=== PATIENT | female | born 1955 | race Caucasian/White ===

== ENCOUNTER → 2016-11-29 | Outpatient (CLI) | payer BC ==
--- NOTE | 2016-12-03 10:16 | MM ---
Reason for exam: screening (asymptomatic). Last mammogram was performed 1 year ago. History: Patient is postmenopausal and has history of other cancer at age 55. Physical Findings: A clinical breast exam by your physician is recommended on an annual basis and results should be correlated with mammographic findings. MG 3D Screening Mammo W/Cad Bilateral CC and MLO view(s) were taken. Prior study comparison: November 22, 2015, bilateral MG 3d screening mammo w/cad. There are scattered fibroglandular densities. There is no discrete abnormality. No significant changes when compared with prior studies. ASSESSMENT: Negative, BI-RAD 1 RECOMMENDATION: Routine screening mammogram of both breasts in 1 year.
== END | disposition home or self-care (01) ==
LOC: RADMAMWWP 06:45
PROVIDERS: ATTEND Internal Medicine
DX: Z12.31 Encounter for screening mammogram for malignant neoplasm of breast (principal)
CPT/HCPCS: 77063; G0202

== ENCOUNTER 2017-10-24 10:51 | Emergency (ER) | payer BC ==
[2017-10-24 11:05] VITALS: RESP 18
[2017-10-24] MEDS ORDERED: ONDANSETRON 4 MG/2 ML VIAL IVP STA (12:06)
[2017-10-24] MEDS ORDERED: SODIUM CHLORIDE 0.9% 2,000 ML IV STA (12:06)
[2017-10-24] MEDS ORDERED: SODIUM CHLORIDE 0.9% 1,000 ML IV STA (12:06)
[2017-10-24] MEDS ORDERED: RX INFO: IV CONTRAST WAS GIVEN 1 EACH MISC MISCELLANE PRN (12:06)
[2017-10-24] MEDS ORDERED: FAMOTIDINE 20 MG/2 ML VIAL IV STA (12:08)
--- NOTE | 2017-10-24 12:23 | ED ---
Nausea/Vomiting/Diarrhea HPI - General Chief complaint: Nausea/Vomiting/Diarrhea Stated complaint: Vomiting Time Seen by Provider: 10/24/17 11:30 Source: patient, RN notes reviewed Mode of arrival: ambulatory Limitations: no limitations - History of Present Illness Initial comments: This is a 62-year-old female who presents with onset of nausea and vomiting around 4 AM this morning and later developing diarrhea. Generalized abdominal pain. No overt fevers chills or sweats vomiting up greenish yellow material. She states she has mostly upper abdominal discomfort mild in severity she was seen by her doctor and sent here for further evaluation. She has a history of a hysterectomy and thyroid lobectomy no other abdominal surgeries she reports. No dysuria no hematuria no blood per rectum. Some mild generalized weakness no overt dizziness or lightheadedness. MD complaint: nausea, vomiting, diarrhea, abdominal pain - Related Data Home Medications Medication Instructions Recorded Confirmed Levothyroxine Sodium [Levoxyl] 100 mcg PO DAILY 10/24/17 10/24/17 Numn-Zwif-Pok 6.25-5-10Mg/5Ml 2.5 ml PO DAILY PRN 10/24/17 10/24/17 [Phenergan VC with Codeine] Previous Rx's Medication Instructions Recorded Dicyclomine [Bentyl] 10 mg PO TID PRN #6 capsule 10/24/17 Ondansetron Odt [Zofran Odt] 4 mg PO Q8HR PRN #10 tab 10/24/17 Allergies Allergy/AdvReac Type Severity Reaction Status Date / Time Inmwchj-Fje-Hfj Reductase AdvReac Unknown Verified 10/24/17 11:19 Inhibitor Review of Systems ROS Statement: Those systems with pertinent positive or pertinent negative responses have been documented in the HPI. ROS Other: All systems not noted in ROS Statement are negative. Past Medical History Past Medical History: Asthma, Hyperlipidemia, Thyroid Disorder Additional Past Medical History / Comment(s): blood clot in brachial artery in her right arm History of Any Multi-Drug Resistant Organisms: None Reported Past Surgical History: Heart Catheterization, Hysterectomy Additional Past Surgical History / Comment(s): left lower lung lobectomy Past Psychological History: No Psychological Hx Reported Smoking Status: Never smoker Past Alcohol Use History: Rare Past Drug Use History: None Reported General Exam - General Exam Comments Initial Comments: This is a well-developed well-nourished awake alert oriented 3 female Limitations: no limitations General appearance: alert Head exam: Present: atraumatic, normocephalic, normal inspection Eye exam: Present: normal appearance, PERRL, EOMI. Absent: scleral icterus, conjunctival injection, periorbital swelling ENT exam: Present: mucous membranes dry Neck exam: Present: normal inspection. Absent: tenderness, meningismus, lymphadenopathy Respiratory exam: Present: normal lung sounds bilaterally. Absent: respiratory distress, wheezes, rales, rhonchi, stridor Cardiovascular Exam: Present: regular rate, normal rhythm, normal heart sounds. Absent: systolic murmur, diastolic murmur, rubs, gallop, clicks GI/Abdominal exam: Present: soft, tenderness (Mild tenderness palpation especially upper abdomen some mild right lower quadrant tenderness no guarding rebound masses or bruits), normal bowel sounds. Absent: distended, guarding, rebound, rigid Rectal exam: Present: deferred Extremities exam: Present: normal inspection, full ROM, normal capillary refill. Absent: tenderness, pedal edema, joint swelling, calf tenderness Back exam: Present: normal inspection Neurological exam: Present: alert, oriented X3, CN II-XII intact Psychiatric exam: Present: normal affect, normal mood Skin exam: Present: warm, dry, intact, normal color. Absent: rash Course Vital Signs 10/24/17 11:01 Temperature 97.1 F L Pulse Rate 91 Respiratory 18 Rate Blood Pressure 135/70 O2 Sat by Pulse 97 Oximetry Medical Decision Making - Medical Decision Making I did discuss [employer] the patient and her family. Patient be discharged she is feeling improved at this time. The presentation is consistent with a gastroenteritis. - Lab Data Result diagrams: 10/24/17 12:43 10/24/17 12:43 Lab Results 10/24/17 10/24/17 Range/Units 12:43 12:43 WBC 16.1 H (3.8-10.6) k/uL RBC 5.63 H (3.80-5.40) m/uL Hgb 16.5 H (11.4-16.0) gm/dL Hct 51.0 H (34.0-46.0) % MCV 90.6 (80.0-100.0) fL MCH 29.4 (25.0-35.0) pg MCHC 32.4 (31.0-37.0) g/dL RDW 14.3 (11.5-15.5) % Plt Count 317 (150-450) k/uL Neutrophils % 92 % Lymphocytes % 3 % Monocytes % 4 % Eosinophils % 1 % Basophils % 0 % Neutrophils # 14.7 H (1.3-7.7) k/uL Lymphocytes # 0.5 L (1.0-4.8) k/uL Monocytes # 0.6 (0-1.0) k/uL Eosinophils # 0.2 (0-0.7) k/uL Basophils # 0.1 (0-0.2) k/uL Sodium 141 (137-145) mmol/L Potassium 3.9 (3.5-5.1) mmol/L Chloride 99 (98-107) mmol/L Carbon Dioxide 29 (22-30) mmol/L Anion Gap 13 mmol/L BUN 24 H (7-17) mg/dL Creatinine 0.83 (0.52-1.04) mg/dL Est GFR (MDRD) Af Amer >60 (>60 ml/min/1.73 sqM) Est GFR (MDRD) Non-Af >60 (>60 ml/min/1.73 sqM) Glucose 112 H (74-99) mg/dL Calcium 10.6 H (8.4-10.2) mg/dL Total Bilirubin 0.9 (0.2-1.3) mg/dL AST 26 (14-36) U/L ALT 44 (9-52) U/L Alkaline Phosphatase 146 H (38-126) U/L Total Protein 8.1 (6.3-8.2) g/dL Albumin 4.9 (3.5-5.0) g/dL Amylase 107 (30-110) U/L Lipase 256 (23-300) U/L - Radiology Data Radiology results: report reviewed (I did review the imaging and reports the exam is consistent with gastroenteritis. It penetrated be normal.), image reviewed Disposition Clinical Impression: Gastroenteritis, Dehydration Disposition: HOME SELF-CARE Condition: Good Instructions: Acute Nausea and Vomiting (ED), Acute Diarrhea (ED), Dehydration (ED) Prescriptions: Dicyclomine [Bentyl] 10 mg PO TID PRN #6 capsule PRN Reason: Pain Ondansetron Odt [Zofran Odt] 4 mg PO Q8HR PRN #10 tab PRN Reason: Nausea Referrals: Quinn Lainez MD [Primary Care Provider] - 1-2 days
[2017-10-24 12:58] LABS: Basophils # (A) 0.1 k/uL (0-0.2); Basophils % (A) 0 %; Eosinophils # (A) 0.2 k/uL (0-0.7); Eosinophils % (A) 1 %; HGB 16.5 gm/dL (11.4-16.0); Lymphocytes # (A) 0.5 k/uL (1.0-4.8); Lymphocytes % (A) 3 %; MCH 29.4 pg (25.0-35.0); MCHC 32.4 g/dL (31.0-37.0); MCV 90.6 fL (80.0-100.0); Mean Platelet Volume 7.1; Monocytes # (A) 0.6 k/uL (0-1.0); Monocytes % (A) 4 %; Neutrophils # (A) 14.7 k/uL (1.3-7.7); Neutrophils % (A) 92 %; Platelet Count 317 k/uL (150-450); RBC 5.63 m/uL (3.80-5.40); RDW 14.3 % (11.5-15.5); WBC 16.1 k/uL (3.8-10.6)
[2017-10-24 13:27] LABS: ALT 44 U/L (9-52); AST 26 U/L (14-36); Albumin 4.9 g/dL (3.5-5.0); Alkaline Phosphatase 146 U/L (38-126); Amylase 107 U/L (30-110); Anion Gap 13 mmol/L; Blood Urea Nitrogen 24 mg/dL (7-17); Calcium 10.6 mg/dL (8.4-10.2); Carbon Dioxide 29 mmol/L (22-30); Chloride 99 mmol/L (98-107); Glucose 112 mg/dL (74-99); Lipase 256 U/L (23-300); Potassium 3.9 mmol/L (3.5-5.1); Sodium 141 mmol/L (137-145); Total Bilirubin 0.9 mg/dL (0.2-1.3); Total Protein 8.1 g/dL (6.3-8.2)
--- NOTE | 2017-10-24 14:04 | CT ---
EXAMINATION TYPE: CT abdomen pelvis w con DATE OF EXAM: 10/24/2017 COMPARISON: NONE HISTORY: Nausea, vomiting and diarrhea today. CT DLP: 885.60 mGycm CONTRAST: CT scan of the abdomen and pelvis is performed without Oral Contrast and with IV Contrast, patient in jected with 100 mL of Omnipaque 300. FINDINGS: LUNG BASES-: No visible nodule. No infiltrate. LIVER/GB: No calcified gallstones. No space occupying hepatic lesion. Biliary tree is of normal ca liber. PANCREAS: No inflammation. No distinct mass. SPLEEN: No splenic enlargement. No lesion seen. ADRENALS: No nodule. No thickening. KIDNEYS/BLADDER: No hydronephrosis. No nephrolithiasis. No disctinct renal mass. Urinary bladder g rossly unremarkable. BOWEL: Normal appendix. Fluid distended small and large bowel felt to reflect gastroenteritis. No darwin dence for obstruction. No free air or abscess. No inflammatory process.. GENITAL ORGANS: Hysterectomy changes noted. LYMPH NODES: No greater than 1cm abdominal or pelvic lymph nodes are appreciated. AORTA: No significant abnormality. OSSEOUS STRUCTURES: No significant abnormality is seen. OTHER: No significant additional abnormality is seen. IMPRESSION: 1. Fluid distended small and large bowel felt to reflect gastroenteritis.
[2017-10-24 15:30] VITALS: BP 132/72; PULSE 96; TEMP 98.1
== END 2017-10-24 15:15 | disposition home or self-care (01) ==
LOC: EC 10:51
DX: K52.9 Noninfective gastroenteritis and colitis, unspecified (principal); E86.0 Dehydration; E07.9 Disorder of thyroid, unspecified; Z88.8 Allergy status to other drugs, medicaments and biological substances; Z79.899 Other long term (current) drug therapy
CPT/HCPCS: 36415; 80053; 82150; 83690; 85025; 74177; 99284; 96374; 96375; 96361 ×2; J2405; Q9967

== ENCOUNTER 2017-11-17 19:02 | Observation (INO) | payer BC ==
[2017-11-17] MEDS ORDERED: NITROGLYCERIN OINT 1 INCH/GM PACKET TOPICAL STA (19:28)
[2017-11-17] MEDS ORDERED: ASPIRIN 81 MG PO STA (19:28)
--- NOTE | 2017-11-17 19:31 | ED ---
General Adult HPI - General Chief complaint: Chest Pain Stated complaint: Chest pain Time Seen by Provider: 11/17/17 19:20 Source: patient, RN notes reviewed Mode of arrival: wheelchair Limitations: no limitations - History of Present Illness Initial comments: Patient is a pleasant 62-year-old female presenting to the emergency department complaining of chest discomfort. Onset was around 3 or 4 this afternoon. Patient has had waxing and waning chest pressure. No discomfort at this time. There is some radiation to the back. Patient has had cough and upper respiratory symptoms for the past week. Patient does frequently get bronchitis. Patient did see her doctor on Saturday. Patient does have some mild associated dyspnea. No nausea or diaphoresis. No fevers. - Related Data Home Medications Medication Instructions Recorded Confirmed Levothyroxine Sodium [Levoxyl] 100 mcg PO DAILY 10/24/17 11/17/17 Albuterol Inhaler [Ventolin Hfa 2 puff INHALATION RT-Q6H PRN 11/17/17 11/17/17 Inhaler] Albuterol Nebulized [Ventolin 2.5 mg INHALATION RT-TID PRN 11/17/17 11/17/17 Nebulized] Amoxic-Pot Clav 875-125Mg 1 tab PO Q12HR 11/17/17 11/17/17 [Augmentin 875-125] Hydrochlorothiazide [Hydrodiuril] 25 mg PO Q48H 11/17/17 11/17/17 Allergies Allergy/AdvReac Type Severity Reaction Status Date / Time Fmclaep-Jcr-Xjk Reductase AdvReac Unknown Verified 11/17/17 19:31 Inhibitor Review of Systems ROS Statement: Those systems with pertinent positive or pertinent negative responses have been documented in the HPI. ROS Other: All systems not noted in ROS Statement are negative. Constitutional: Denies: fever Eyes: Denies: eye pain ENT: Denies: ear pain Respiratory: Reports: cough, dyspnea Cardiovascular: Reports: chest pain Endocrine: Denies: fatigue Gastrointestinal: Denies: abdominal pain Genitourinary: Denies: dysuria Musculoskeletal: Denies: arthralgia Skin: Denies: rash Neurological: Denies: weakness Past Medical History Past Medical History: Asthma, Hyperlipidemia, Thyroid Disorder Additional Past Medical History / Comment(s): blood clot in brachial artery in her right arm History of Any Multi-Drug Resistant Organisms: None Reported Past Surgical History: Heart Catheterization, Hysterectomy Additional Past Surgical History / Comment(s): left lower lung lobectomy Past Psychological History: No Psychological Hx Reported Smoking Status: Never smoker Past Alcohol Use History: Rare Past Drug Use History: None Reported General Exam Limitations: no limitations General appearance: alert, in no apparent distress Head exam: Present: atraumatic Eye exam: Present: normal appearance, PERRL ENT exam: Present: normal oropharynx Neck exam: Present: normal inspection Respiratory exam: Present: normal lung sounds bilaterally. Absent: chest wall tenderness Cardiovascular Exam: Present: regular rate, normal rhythm Expanded Peripheral pulses: 2+: Radial (R), Radial (L), Dorsalis Pedis (R), Dorsalis Pedis (L) GI/Abdominal exam: Present: soft. Absent: tenderness Extremities exam: Present: normal inspection. Absent: pedal edema, calf tenderness Back exam: Present: normal inspection. Absent: tenderness Neurological exam: Present: alert Psychiatric exam: Present: normal affect, normal mood Skin exam: Present: normal color Course Vital Signs 11/17/17 11/17/17 19:05 21:21 Temperature 97.4 F L Pulse Rate 83 79 Respiratory 20 16 Rate Blood Pressure 181/84 172/81 O2 Sat by Pulse 98 98 Oximetry EKG Findings - EKG Comments: EKG Findings:: Normal sinus rhythm 81. IL 150. QRS 156. QT 428. QTC 497. Normal axis. Right bundle branch block. No acute ST change. Medical Decision Making - Medical Decision Making Patient reevaluated and resting comfortably in bed. Symptom-free at this time. Patient and family updated on results and plan. Case was discussed in detail with Dr. broussard, who will admit for Dr. Regalado. - Lab Data Result diagrams: 11/17/17 19:45 11/17/17 19:45 Lab Results 11/17/17 11/17/17 11/17/17 Range/Units 19:45 19:45 19:45 WBC 7.3 (3.8-10.6) k/uL RBC 4.67 (3.80-5.40) m/uL Hgb 13.7 (11.4-16.0) gm/dL Hct 42.8 (34.0-46.0) % MCV 91.6 (80.0-100.0) fL MCH 29.3 (25.0-35.0) pg MCHC 31.9 (31.0-37.0) g/dL RDW 12.8 (11.5-15.5) % Plt Count 310 (150-450) k/uL Neutrophils % 57 % Lymphocytes % 24 % Monocytes % 10 % Eosinophils % 5 % Basophils % 1 % Neutrophils # 4.1 (1.3-7.7) k/uL Lymphocytes # 1.7 (1.0-4.8) k/uL Monocytes # 0.8 (0-1.0) k/uL Eosinophils # 0.3 (0-0.7) k/uL Basophils # 0.1 (0-0.2) k/uL PT (9.0-12.0) sec INR (<1.2) APTT (22.0-30.0) sec D-Dimer (<0.60) mg/L FEU Sodium 143 (137-145) mmol/L Potassium 3.7 (3.5-5.1) mmol/L Chloride 102 (98-107) mmol/L Carbon Dioxide 27 (22-30) mmol/L Anion Gap 14 mmol/L BUN 16 (7-17) mg/dL Creatinine 0.90 (0.52-1.04) mg/dL Est GFR (MDRD) Af Amer >60 (>60 ml/min/1.73 sqM) Est GFR (MDRD) Non-Af >60 (>60 ml/min/1.73 sqM) Glucose 98 (74-99) mg/dL Calcium 9.6 (8.4-10.2) mg/dL Magnesium 1.9 (1.6-2.3) mg/dL Total Bilirubin 0.4 (0.2-1.3) mg/dL AST 30 (14-36) U/L ALT 31 (9-52) U/L Alkaline Phosphatase 153 H (38-126) U/L Total Creatine Kinase 93 (30-135) U/L CK-MB (CK-2) 0.6 (0.0-2.4) ng/mL CK-MB (CK-2) Rel Index 0.6 Troponin I <0.012 (0.000-0.034) ng/mL NT-Pro-B Natriuret Pep pg/mL Total Protein 7.6 (6.3-8.2) g/dL Albumin 4.3 (3.5-5.0) g/dL Influenza Type A RNA (Not Detectd) Influenza Type B (PCR) (Not Detectd) 11/17/17 11/17/17 11/17/17 Range/Units 19:45 19:45 19:47 WBC (3.8-10.6) k/uL RBC (3.80-5.40) m/uL Hgb (11.4-16.0) gm/dL Hct (34.0-46.0) % MCV (80.0-100.0) fL MCH (25.0-35.0) pg MCHC (31.0-37.0) g/dL RDW (11.5-15.5) % Plt Count (150-450) k/uL Neutrophils % % Lymphocytes % % Monocytes % % Eosinophils % % Basophils % % Neutrophils # (1.3-7.7) k/uL Lymphocytes # (1.0-4.8) k/uL Monocytes # (0-1.0) k/uL Eosinophils # (0-0.7) k/uL Basophils # (0-0.2) k/uL PT 9.8 (9.0-12.0) sec INR 1.0 (<1.2) APTT 21.8 L (22.0-30.0) sec D-Dimer 0.34 (<0.60) mg/L FEU Sodium (137-145) mmol/L Potassium (3.5-5.1) mmol/L Chloride (98-107) mmol/L Carbon Dioxide (22-30) mmol/L Anion Gap mmol/L BUN (7-17) mg/dL Creatinine (0.52-1.04) mg/dL Est GFR (MDRD) Af Amer (>60 ml/min/1.73 sqM) Est GFR (MDRD) Non-Af (>60 ml/min/1.73 sqM) Glucose (74-99) mg/dL Calcium (8.4-10.2) mg/dL Magnesium (1.6-2.3) mg/dL Total Bilirubin (0.2-1.3) mg/dL AST (14-36) U/L ALT (9-52) U/L Alkaline Phosphatase (38-126) U/L Total Creatine Kinase (30-135) U/L CK-MB (CK-2) (0.0-2.4) ng/mL CK-MB (CK-2) Rel Index Troponin I (0.000-0.034) ng/mL NT-Pro-B Natriuret Pep 344 pg/mL Total Protein (6.3-8.2) g/dL Albumin (3.5-5.0) g/dL Influenza Type A RNA Not Detected (Not Detectd) Influenza Type B (PCR) Not Detected (Not Detectd) - Radiology Data Radiology results: image reviewed (Chest x-ray shows no acute process.) Disposition Clinical Impression: Chest pain Disposition: ADMITTED IP TO THIS HOSP Referrals: Quinn Lainez MD [Primary Care Provider] - 1-2 days Decision Time: 21:23
--- NOTE | 2017-11-17 19:59 | XR ---
EXAMINATION TYPE: XR chest 2V DATE OF EXAM: 11/17/2017 COMPARISON: NONE INDICATION: Chest pain short of breath TECHNIQUE: Frontal and lateral views of the chest are obtained. FINDINGS: The heart size is normal. The pulmonary vasculature is normal. The lungs are clear. IMPRESSION: 1. No acute pulmonary process.
[2017-11-17 20:02] LABS: Basophils # (A) 0.1 k/uL (0-0.2); Basophils % (A) 1 %; Eosinophils # (A) 0.3 k/uL (0-0.7); Eosinophils % (A) 5 %; HCT 42.8 % (34.0-46.0); HGB 13.7 gm/dL (11.4-16.0); Lymphocytes # (A) 1.7 k/uL (1.0-4.8); Lymphocytes % (A) 24 %; MCH 29.3 pg (25.0-35.0); MCHC 31.9 g/dL (31.0-37.0); MCV 91.6 fL (80.0-100.0); Mean Platelet Volume 6.7; Monocytes # (A) 0.8 k/uL (0-1.0); Monocytes % (A) 10 %; Neutrophils # (A) 4.1 k/uL (1.3-7.7); Neutrophils % (A) 57 %; Platelet Count 310 k/uL (150-450); RBC 4.67 m/uL (3.80-5.40); RDW 12.8 % (11.5-15.5); WBC 7.3 k/uL (3.8-10.6)
[2017-11-17 20:07] LABS: D-Dimer 0.34 mg/L FEU (<0.60)
[2017-11-17 20:09] LABS: ALT 31 U/L (9-52); AST 30 U/L (14-36); Albumin 4.3 g/dL (3.5-5.0); Alkaline Phosphatase 153 U/L (38-126); Anion Gap 14 mmol/L; Blood Urea Nitrogen 16 mg/dL (7-17); Calcium 9.6 mg/dL (8.4-10.2); Carbon Dioxide 27 mmol/L (22-30); Chloride 102 mmol/L (98-107); Glucose 98 mg/dL (74-99); Magnesium 1.9 mg/dL (1.6-2.3); Potassium 3.7 mmol/L (3.5-5.1); Sodium 143 mmol/L (137-145); Total Bilirubin 0.4 mg/dL (0.2-1.3); Total Protein 7.6 g/dL (6.3-8.2)
[2017-11-17 20:11] LABS: Prothrombin Time 9.8 sec (9.0-12.0)
[2017-11-17 20:23] LABS: Partial Thromboplastin Time 21.8 sec (22.0-30.0)
[2017-11-17 20:37] LABS: Creatine Kinase 93 U/L (30-135)
[2017-11-17 20:50] LABS: Creatine Kinase MB 0.6 ng/mL (0.0-2.4); Troponin I <0.012 ng/mL (0.000-0.034)
[2017-11-17] MEDS ORDERED: NITROGLYCERIN SL TABS 0.4 MG TAB SUBLINGUAL PRN (21:23)
[2017-11-17 22:35] VITALS: BMI 31.6
[2017-11-18] MEDS: NITROGLYCERIN OINT 1 INCH/GM PACKET TOPICAL SCH ×2 (00:37→05:06)
[2017-11-18 04:27] LABS: Cholesterol 187 mg/dL (<200); HDL Cholesterol 58 mg/dL (40-60); LDL Cholesterol,Calculated 118 mg/dL (0-99); Triglycerides 57 mg/dL (<150)
[2017-11-18 04:40] LABS: Creatine Kinase 68 U/L (30-135)
[2017-11-18 04:54] LABS: Creatine Kinase MB 0.5 ng/mL (0.0-2.4); Troponin I <0.012 ng/mL (0.000-0.034)
[2017-11-18] MEDS ORDERED: ALBUTEROL NEBULIZED 2.5 MG/3 ML INHALATION PRN (08:01)
[2017-11-18] MEDS ORDERED: LEVOTHYROXINE 100 MCG TAB PO SCH (09:00)
[2017-11-18] MEDS ORDERED: ASPIRIN 325 MG TAB PO SCH (09:00)
[2017-11-18] MEDS ORDERED: ENOXAPARIN 40 MG/0.4 ML SYRINGE SQ SCH (09:00)
[2017-11-18] MEDS ORDERED: HYDROCHLOROTHIAZIDE 25 MG TAB PO SCH (09:00)
[2017-11-18 09:04] LABS: Creatine Kinase 64 U/L (30-135)
[2017-11-18 09:15] LABS: Creatine Kinase MB 0.4 ng/mL (0.0-2.4); Troponin I <0.012 ng/mL (0.000-0.034)
--- NOTE | 2017-11-18 10:26 | P.CRDCN ---
History of Present Illness Consult date: 11/18/17 Consult reason: chest pain History of present illness: Mrs. Dupree is a pleasant 62-year-old female past medical history significant for mitral and aortic regurgitation, asthma, hypothyroidism and dyslipidemia. She sees Dr. Layton in the office. We have been asked to see her in consultation for complaints of chest pain. She states she has been coughing since Saturday and yesterday while she was having a prolonged coughing episode she started feeling a tightness in the midsternal region that radiated to bilateral shoulder blades in the back. She denies any radiation to the arms, neck or jaw. Denies associated shortness of breath, dizziness, nausea , vomiting, diaphoresis or palpitations. The pain subsided on its own with specific alleviating factors. EKG on arrival reveals sinus mechanism with right bundle branch block. This is consistent with old EKG. Chest xray negative for an acute cardiopulmonary process. Laboratory data reviewed, hgb 13.7, plt 310, d-dimer 0.34, potassium 3.7, magnesium 1.9, creatinine 0.9, cardiac enzymes negative x3, LDL 118, influenza testing is negative, proBNP 344. Current cardiac medications include hydrochlorothiazide 25 mg every other day. Most recent echocardiogram performed in the office 11/2016 reveals moderate AR, mild pulmonary hypertension with normal EF. Review of Systems At the time of my exam: CONSTITUTIONAL: Denies fever. Denies chills. EYES: Denies blurred vision. Denies vision changes. Denies eye pain. EARS, NOSE, MOUTH & THROAT: Denies headache. Denies sore throat. Denies ear pain. CARDIOVASCULAR: Denies chest pain. Denies shortness of breath. Denies orthopnea. Denies PND. Denies palpitations. RESPIRATORY: Complains of cough. GASTROINTESTINAL: Denies abdominal pain. Denies diarrhea. Denies constipation. Denies nausea. Denies vomiting. MUSCULOSKELETAL: Denies myalgias. INTEGUMENTARY: Denies pruitis. Denies rash. NEUROLOGIC: Denies numbness. Denies tingling. Denies weakness. PSYCHIATRIC: Denies anxiety. Denies depression. ENDOCRINE: Denies fatigue. Denies weight change. Denies polydipsia. Denies polyurina. GENITOURINARY: Denies burning, hematuria or urgency with micturation. HEMATOLOGIC: Denies history of anemia. Denies bleeding. 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 History of Any Multi-Drug Resistant Organisms: None Reported Past Surgical History: Heart Catheterization, Hysterectomy Additional Past Surgical History / Comment(s): left lower lung lobectomy secondary to benign tumor, "leaky valve", pt unsure of which valve {she follows with for this} Past Anesthesia/Blood Transfusion Reactions: No Reported Reaction Past Psychological History: No Psychological Hx Reported Smoking Status: Never smoker Past Alcohol Use History: Rare Past Drug Use History: None Reported - Past Family History Mother Family Medical History: Myocardial Infarction (VT) Additional Family Medical History / Comment(s): VT at 93 Father Additional Family Medical History / Comment(s): from ruptured gastric ulcer Sister(s) Family Medical History: Myocardial Infarction (VT) Additional Family Medical History / Comment(s): of VT 60 Medications and Allergies Home Medications Medication Instructions Recorded Confirmed Type Levothyroxine Sodium [Levoxyl] 100 mcg PO DAILY 10/24/17 11/17/17 History Albuterol Inhaler [Ventolin Hfa 2 puff INHALATION RT-Q6H PRN 11/17/17 11/17/17 History Inhaler] Albuterol Nebulized [Ventolin 2.5 mg INHALATION RT-TID PRN 11/17/17 11/17/17 History Nebulized] Amoxic-Pot Clav 875-125Mg 1 tab PO Q12HR 11/17/17 11/17/17 History [Augmentin 875-125] Hydrochlorothiazide [Hydrodiuril] 25 mg PO Q48H 11/17/17 11/17/17 History Allergies Allergy/AdvReac Type Severity Reaction Status Date / Time Itddhvk-Wuk-Nnu Reductase AdvReac Unknown Verified 11/17/17 19:31 Inhibitor Physical Exam Vitals: Vital Signs Temp Pulse Pulse Resp BP BP Pulse Ox 11/18/17 07:18 98.4 F 70 16 138/72 97 11/18/17 04:00 98.3 F 60 16 131/74 95 11/18/17 00:00 97.9 F 66 16 109/56 94 L 11/17/17 22:58 68 16 11/17/17 21:55 98.0 F 73 16 149/73 94 L 11/17/17 21:21 79 16 172/81 98 11/17/17 19:05 97.4 F L 83 20 181/84 98 Intake and Output 11/17/17 11/18/17 11/18/17 22:59 06:59 14:59 Other: Voiding Method Toilet Toilet # Voids 2 2 Weight 89.1 kg Blood pressure 130/72 heart rate 70 afebrile GENERAL: This is a 62-year-old female in no apparent distress at the time of my examination. HEENT: Head is atraumatic, normocephalic. Pupils are equal, round. Sclerae anicteric. Conjunctivae are clear. Mucous membranes of the mouth are moist. Neck is supple. There is no jugular venous distention. No carotid bruit is heard. LUNGS: Clear to auscultation no wheezes, rales or rhonchi. No chest wall tenderness is noted on palpation or with deep breathing. HEART: Regular rate and rhythm with systolic murmur at the base, no rubs or gallops. S1 and S2 heard. ABDOMEN: Soft, nontender. Bowel sounds are heard. No organomegaly noted. EXTREMITIES: Trace non-pitting b/l lower extremity edema and no calf tenderness noted. VASCULAR: Radial and dorsalis pedis pulses palpated, no evidence of clubbing. NEUROLOGIC: Patient is awake, alert and oriented x3. Results 11/17/17 19:45 11/17/17 19:45 Cardiac Enzymes 11/17/17 11/17/17 11/18/17 Range/Units 19:45 19:45 03:29 AST 30 (14-36) U/L CK-MB (CK-2) 0.6 0.5 (0.0-2.4) ng/mL Troponin I <0.012 <0.012 (0.000-0.034) ng/mL Coagulation 11/17/17 Range/Units 19:45 PT 9.8 (9.0-12.0) sec APTT 21.8 L (22.0-30.0) sec Lipids 11/18/17 Range/Units 03:29 Triglycerides 57 (<150) mg/dL Cholesterol 187 (<200) mg/dL HDL Cholesterol 58 (40-60) mg/dL CBC 11/17/17 Range/Units 19:45 WBC 7.3 (3.8-10.6) k/uL RBC 4.67 (3.80-5.40) m/uL Hgb 13.7 (11.4-16.0) gm/dL Hct 42.8 (34.0-46.0) % Plt Count 310 (150-450) k/uL Comprehensive Metabolic Panel 11/17/17 Range/Units 19:45 Sodium 143 (137-145) mmol/L Potassium 3.7 (3.5-5.1) mmol/L Chloride 102 (98-107) mmol/L Carbon Dioxide 27 (22-30) mmol/L BUN 16 (7-17) mg/dL Creatinine 0.90 (0.52-1.04) mg/dL Glucose 98 (74-99) mg/dL Calcium 9.6 (8.4-10.2) mg/dL AST 30 (14-36) U/L ALT 31 (9-52) U/L Alkaline Phosphatase 153 H (38-126) U/L Total Protein 7.6 (6.3-8.2) g/dL Albumin 4.3 (3.5-5.0) g/dL Current Medications Generic Name Dose Route Start Last Admin Trade Name Freq PRN Reason Stop Dose Admin Aspirin 325 mg 11/18/17 09:00 Aspirin PO DAILY [facility] Nitroglycerin 1 inch 11/18/17 00:00 11/18/17 05:06 Nitro-Bid Oint TOPICAL Not Given Q6HR [facility] Nitroglycerin 0.4 mg 11/17/17 21:23 Nitrostat SUBLINGUAL Q5M PRN Chest Pain Intake and Output 11/17/17 11/18/17 11/18/17 22:59 06:59 14:59 Other: Voiding Method Toilet Toilet # Voids 2 2 Weight 89.1 kg 11/17/17 19:45 11/17/17 19:45 Assessment and Plan Assessment: ASSESSMENT 1. Pleuritic chest pain, atypical for an acute coronary event. EKG shows no signs of ischemia with negative cardiac enzymes. Currently being treated with antibiotics for bronchitis per PCP. 2. Valvular heart disease, chronic 3. Dyslipidemia, statin intolerant 4. Hypothyroidism PLAN Obtain 2D echocardiogram and doppler study to assess cardiac structure and function. An acute coronary event has been ruled out, pain is more pleuritic in nature and related to coughing. Lifestyle modifications recommended for lowering LDL. No further cardiac work-up required as an inpatient. Follow up with Dr. Layton at regularly scheduled appointment in December. Thank you kindly for this consultation. Nurse Practitioner note has been reviewed, I agree with a documented findings and plan of care. Patient was seen and examined.
--- NOTE | 2017-11-18 10:43 | ECHOF ---
Referral Reason:chest pain MEASUREMENTS -------- HEIGHT: 167.6 cm WEIGHT: 88.9 kg BP: 138/72 RVIDd: 2.9 cm (< 3.3) IVSd: 1.1 cm (0.6 - 1.1) LVIDd: 4.0 cm (3.9 - 5.3) LVPWd: 1.0 cm (0.6 - 1.1) IVSs: 1.4 cm LVIDs: 2.8 cm LVPWs: 1.5 cm LA Diam: 3.3 cm (2.7 - 3.8) LAESV Index (A-L): 16.73 ml/m Ao Diam: 3.0 cm (2.0 - 3.7) AV Cusp: 1.8 cm (1.5 - 2.6) MV EXCURSION: 16.356 mm (> 18.000) MV EF SLOPE: 65 mm/s (70 - 150) EPSS: 0.3 cm MV E Kurt: 1.11 m/s MV DecT: 238 ms MV A Kurt: 0.96 m/s MV E/A Ratio: 1.16 AR PHT: 641 ms RAP: 5.00 mmHg RVSP: 41.92 mmHg FINDINGS -------- Sinus rhythm. This was a technically good study. The left ventricular size is normal. There is borderline concentric left ventricular hypertrophy. Overall left ventricular systolic function is normal with, an EF between 55 - 60 %. The right ventricle is normal in size. Normal LA size by volume 22+/-6 ml/m2. The right atrium is normal in size. There is mild aortic valve sclerosis. There is vfwz-bq-zdtduocg aortic regurgitation. The mitral valve leaflets are mildly thickened. Mild mitral regurgitation is present. Ozkr-cs-kjuxsdms tricuspid regurgitation present. There is mild pulmonary hypertension. The right ventricular systolic pressure, as measured by Doppler, is 41.92mmHg. Trace/mild (physiologic) pulmonic regurgitation. The aortic root size is normal. Normal inferior vena cava with normal inspiratory collapse consistent with estimated right atrial pre ssure of 5 mmHg. There is no pericardial effusion. CONCLUSIONS -------- 1. Sinus rhythm. 2. This was a technically good study. 3. The left ventricular size is normal. 4. There is borderline concentric left ventricular hypertrophy. 5. Overall left ventricular systolic function is normal with, an EF between 55 - 60 %. 6. Normal LA size by volume 22+/-6 ml/m2. 7. There is mild aortic valve sclerosis. 8. There is wkqb-uy-yaztkhdo aortic regurgitation. 9. The mitral valve leaflets are mildly thickened. 10. Mild mitral regurgitation is present. 11. There is mild pulmonary hypertension. 12. The right ventricular systolic pressure, as measured by Doppler, is 41.92mmHg. 13. Trace/mild (physiologic) pulmonic regurgitation. 14. The aortic root size is normal. 15. Normal inferior vena cava with normal inspiratory collapse consistent with estimated right atrial pressure of 5 mmHg. 16. There is no pericardial effusion. DEBONING TEAM LEADER: Marielle Atwood RDCS
[2017-11-18 15:57] VITALS: BP 134/77; PULSE 71; RESP 18; TEMP 97.8
--- NOTE | 2017-11-18 17:33 | HP ---
HISTORY AND PHYSICAL PHYSICAL AND DISCHARGE SUMMARY: DATE OF ADMISSION: 11/17/2017. DATE OF DISCHARGE: 11/18/17. FINAL DIAGNOSES: 1. Chest pain, pleuritic in nature, likely from viral, pleurisy and a musculoskeletal component. 2. Intermittent asthma. 3. Essential hypertension. 4. Hyperlipidemia. 5. Hypothyroid. PRESENTING COMPLAINT: Chest pain. HISTORY OF PRESENTING COMPLAINT: This is a very pleasant 62-year-old patient of Dr. 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 The patient started to have a cold 2 to 3 days ago and started having bouts of coughing and patient started hurting in front of the chest and the back of the chest, had a stuffy nose. Appetite was fair. No fever. Pain was limited to coughing and taking deep breaths. Otherwise not related to exertion. She was talking to a friend who is an EMT. Because of the chest pain component patient sent down to the ER. The patient is rather active otherwise with no cardiac history. REVIEW OF SYSTEMS: CONSTITUTIONAL: None. HEENT: As above. RESPIRATORY: As above. CARDIOVASCULAR: None. GASTROINTESTINAL: None. GENITOURINARY: None. MUSCULOSKELETAL: As above. DERMATOLOGICAL: None. HEMATOLOGIC: None. LYMPHATIC: None. PSYCHIATRY: None. NEUROLOGICAL: None. PAST MEDICAL HISTORY: Intermittent asthma, hypertension, hyperlipidemia, hypothyroid, left lower lobe lobectomy for benign tumor, skin cancer both basal and squamous. PAST SURGICAL HISTORY: Cardiac catheterization, hysterectomy, left lower lobe lobectomy secondary to benign tumor, leaky valve. SOCIAL HISTORY: No smoking, alcohol rarely. 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. FAMILY HISTORY: Myocardial infarction at age of 89. HOME MEDICATIONS: 1. Augmentin 875 1 tab p.o. q.12. 2. Ventolin 2.5 t.i.d. p.r.n. 3. Ventolin HFA 2 puffs q.6h p.r.n. 4. Levoxyl 100 mcg p.o. daily. 5. Hydrochlorothiazide 25 p.o. q.48 hours. ALLERGIES: STATINS. PHYSICAL EXAMINATION: Vital signs on presentation: Temp 97.4, pulse 83, respirations 20, blood pressure 180/84, pulse ox 98% on room air. Repeat blood pressure is 149/73. GENERAL APPEARANCE: Well built, BMI 31.7, lying in bed, not in distress. EYES: Pupils equal. Conjunctivae normal. HEENT: Oral cavity normal. NECK: JVD not raised. Mass not palpable. RESPIRATORY: Effort normal. Lungs, fair entry. CARDIOVASCULAR: First and second sounds, no edema. ABDOMEN: Soft, nontender. Liver and spleen not palpable. LYMPHATIC: No lymph node palpable in neck or axillae. PSYCHIATRY: Alert and oriented x3. Mood and affect normal. NEUROLOGICAL: Pupils equal. Cranial nerves grossly intact. Power and sensation grossly intact. INVESTIGATIONS: White count 7.3, hemoglobin 13.7, potassium 3.7, BUN and creatinine are normal. Troponin x3 negative. Influenza A and B negative. EKG shows right bundle branch block. Chest x-ray unremarkable. ASSESSMENT: 1. Chest pain likely musculoskeletal from bout of coughing and possibly viral pleurisy in a patient, although, started off with an acute cold. 2. Possible acute bronchitis viral. 3. Intermittent asthma. 4. Hypertension. 5. Hyperlipidemia. 6. Hypothyroidism. 7. Left lower lobe lobectomy benign. PLAN: Cardiology Dr. Agruello was consulted who did a 2-D echocardiogram. LV function is normal. Home medications resumed. The patient is to follow up with family doctor. This presentation is not really felt to be cardiac. DISPOSITION: Home. Follow up with Dr. Sharmaine Layton in 2 weeks. Follow up with Dr. Lainez in 1 week. Patient told to increase the fluid intake. MMODL / IJN: [id number] /
== END 2017-11-18 17:01 | disposition home or self-care (01) ==
LOC: EC 19:02 → 3OBS 21:24
PROVIDERS: ADMIT Hospitalist; ATTEND Hospitalist
DX: R07.89 Other chest pain (principal); R07.81 Pleurodynia; J45.20 Mild intermittent asthma, uncomplicated; I08.0 Rheumatic disorders of both mitral and aortic valves; I10 Essential (primary) hypertension; E78.5 Hyperlipidemia, unspecified; E03.9 Hypothyroidism, unspecified; Z90.2 Acquired absence of lung [part of]; Z79.899 Other long term (current) drug therapy; Z88.8 Allergy status to other drugs, medicaments and biological substances; Z86.718 Personal history of other venous thrombosis and embolism; Z85.828 Personal history of other malignant neoplasm of skin; Z82.49 Family history of ischemic heart disease and other diseases of the circulatory system; Z83.79 Family history of other diseases of the digestive system
CPT/HCPCS: 36415; 93005; 93306; 85379; 83880; 80061; 80053; 82550 ×2; 82553 ×2; 83735; 84484 ×2; 85025; 85610; 85730; 87502; 71046; 99285; G0378 ×2

== ENCOUNTER → 2018-01-22 | Outpatient (CLI) | payer BC ==
--- NOTE | 2018-01-23 14:27 | MM ---
Reason for exam: screening (asymptomatic). Last mammogram was performed 1 year and 2 months ago. History: Patient is postmenopausal and has history of other cancer at age 55. Physical Findings: A clinical breast exam by your physician is recommended on an annual basis and results should be correlated with mammographic findings. MG 3D Screening Mammo W/Cad Bilateral CC and MLO view(s) were taken. Prior study comparison: November 29, 2016, bilateral MG 3d screening mammo w/cad. November 22, 2015, bilateral MG 3d screening mammo w/cad. The breast tissue is heterogeneously dense. This may lower the sensitivity of mammography. No significant changes when compared with prior studies. ASSESSMENT: Benign, BI-RAD 2 RECOMMENDATION: Routine screening mammogram of both breasts in 1 year.
== END | disposition home or self-care (01) ==
LOC: RADMAMWWP 08:51
PROVIDERS: ATTEND Internal Medicine
DX: Z12.31 Encounter for screening mammogram for malignant neoplasm of breast (principal)
CPT/HCPCS: 77063; 77067

== ENCOUNTER → 2018-10-15 | Outpatient (CLI) | payer BC ==
[2018-10-15 11:32] LABS: Basophils % (A) 1 %; Eosinophils # (A) 0.2 k/uL (0-0.7); Eosinophils % (A) 3 %; HCT 44.1 % (34.0-46.0); HGB 14.9 gm/dL (11.4-16.0); Lymphocytes # (A) 1.6 k/uL (1.0-4.8); Lymphocytes % (A) 27 %; MCH 29.9 pg (25.0-35.0); MCHC 33.7 g/dL (31.0-37.0); MCV 88.6 fL (80.0-100.0); Mean Platelet Volume 6.5; Monocytes # (A) 0.5 k/uL (0-1.0); Monocytes % (A) 9 %; Neutrophils # (A) 3.3 k/uL (1.3-7.7); Neutrophils % (A) 57 %; Platelet Count 322 k/uL (150-450); RBC 4.98 m/uL (3.80-5.40); RDW 13.3 % (11.5-15.5); WBC 5.7 k/uL (3.8-10.6)
[2018-10-15 12:14] LABS: Total Eosinophil Count 172 #EOS/uL (150-300)
[2018-10-15 20:00] LABS: Dermato. farinae IgE <0.10 kU/L
[2018-10-15 20:01] LABS: Cat Epith & Dander IgE <0.10 kU/L
[2018-10-15 20:02] LABS: Alternaria alternata IgE <0.10 kU/L; Cockroach IgE <0.10 kU/L; Dog Dander IgE <0.10 kU/L; Maple (Box Elder) IgE <0.10 kU/L
[2018-10-15 20:03] LABS: Birch IgE <0.10 kU/L
[2018-10-15 20:06] LABS: Elm IgE <0.10 kU/L; Oak IgE <0.10 kU/L; Ragweed,Common IgE <0.10 kU/L
[2018-10-15 20:07] LABS: Red Top (Bentgrass) IgE <0.10 kU/L
[2018-10-15 20:21] LABS: Immunoglobulin E 8.12 IU/mL (0.00-114.00)
== END | disposition home or self-care (01) ==
LOC: LABWHC1 10:44
PROVIDERS: ATTEND Internal Medicine
DX: J45.991 Cough variant asthma (principal); R05 Cough
CPT/HCPCS: 36415; 82785; 85008; 85025; 86003

== ENCOUNTER → 2018-10-22 | Outpatient (CLI) | payer BC ==
--- NOTE | 2018-10-22 08:09 | CT ---
EXAMINATION TYPE: CT sinus wo con DATE OF EXAM: 10/22/2018 COMPARISON: NONE HISTORY: Chronic sinusitis per order. Sinus infection with long-lasting cold and occasional headaches since July per patient. CT DLP: 609.4 mGycm. Automated Exposure Control for Dose Reduction was Utilized. TECHNIQUE: CT scan of the sinuses is performed without contrast, axial images are obtained, coronal r eformatted images are also reviewed. FINDINGS: The paranasal sinuses including the frontal, ethmoid, sphenoid, and maxillary sinuses bila terally are well-aerated without abnormal opacification. The ostiomeatal complex is patent bilateral ly on the coronal images. Visualized portion of mastoid air cells show no abnormal opacification. The globes are intact bilate rally. Visualized portion of brain parenchyma is unremarkable. IMPRESSION: The sinuses are clear and the ostiomeatal complex is patent bilaterally.
== END | disposition home or self-care (01) ==
LOC: RADCTMAIN 07:08
PROVIDERS: ATTEND Internal Medicine
DX: J32.9 Chronic sinusitis, unspecified (principal)
CPT/HCPCS: 70486

== ENCOUNTER → 2019-09-14 | Outpatient (CLI) | payer BC ==
--- NOTE | 2019-09-14 11:35 | MM ---
Reason for exam: screening (asymptomatic). Last mammogram was performed 1 year and 8 months ago. History: Patient is postmenopausal and has history of other cancer at age 55. Physical Findings: A clinical breast exam by your physician is recommended on an annual basis and results should be correlated with mammographic findings. MG 3D Screening Mammo W/Cad Bilateral CC and MLO view(s) were taken. Prior study comparison: January 22, 2018, bilateral MG 3d screening mammo w/cad. November 29, 2016, bilateral MG 3d screening mammo w/cad. There are scattered fibroglandular densities. No suspicious abnormality. No significant changes when compared with prior studies. ASSESSMENT: Negative, BI-RAD 1 RECOMMENDATION: Routine screening mammogram of both breasts in 1 year.
== END | disposition home or self-care (01) ==
LOC: RADMAMWWP 08:21
PROVIDERS: ATTEND Internal Medicine
DX: Z12.31 Encounter for screening mammogram for malignant neoplasm of breast (principal)
CPT/HCPCS: 77063; 77067

== ENCOUNTER → 2020-09-28 | Outpatient (CLI) | payer BC ==
--- NOTE | 2020-09-28 11:51 | MM ---
Reason for exam: screening (asymptomatic). Last mammogram was performed 1 year ago. History: Patient is postmenopausal and has history of other cancer at age 55. Physical Findings: A clinical breast exam by your physician is recommended on an annual basis and results should be correlated with mammographic findings. MG 3D Screening Mammo W/Cad Bilateral CC and MLO view(s) were taken. Prior study comparison: September 14, 2019, bilateral MG 3d screening mammo w/cad. January 22, 2018, bilateral MG 3d screening mammo w/cad. There are scattered fibroglandular densities. There is no discrete abnormality. No significant changes when compared with prior studies. ASSESSMENT: Negative, BI-RAD 1 RECOMMENDATION: Routine screening mammogram of both breasts in 1 year.
== END | disposition home or self-care (01) ==
LOC: RADMAMWWP 06:59
PROVIDERS: ATTEND Internal Medicine
DX: Z12.31 Encounter for screening mammogram for malignant neoplasm of breast (principal)
CPT/HCPCS: 77063; 77067

== ENCOUNTER → 2021-11-14 | Outpatient (CLI) | payer BC ==
--- NOTE | 2021-11-14 11:32 | MM ---
Reason for exam: screening (asymptomatic). Last mammogram was performed 1 year and 2 months ago. History: Patient is postmenopausal and has history of other cancer at age 55. Physical Findings: A clinical breast exam by your physician is recommended on an annual basis and results should be correlated with mammographic findings. MG 3D Screening Mammo W/Cad Bilateral CC and MLO view(s) were taken. Prior study comparison: September 28, 2020, bilateral MG 3d screening mammo w/cad. September 14, 2019, bilateral MG 3d screening mammo w/cad. There are scattered fibroglandular densities. No significant changes when compared with prior studies. ASSESSMENT: Benign, BI-RAD 2 RECOMMENDATION: Routine screening mammogram of both breasts in 1 year.
== END | disposition home or self-care (01) ==
LOC: RADMAMWWP 06:56
PROVIDERS: ATTEND Family Medicine
DX: Z12.39 Encounter for other screening for malignant neoplasm of breast (principal)
CPT/HCPCS: 77063; 77067

== ENCOUNTER → 2022-02-27 | Outpatient (CLI) | payer BC ==
[2022-02-27 14:33] LABS: ALT 16 U/L (8-44); AST 22 U/L (13-35); LDL Cholesterol,Calculated 139.3 mg/dL (0.0-131.0); VLDL Calculation 19.12 mg/dL (5.00-40.00)
== END | disposition home or self-care (01) ==
LOC: LABWHC1 08:35
PROVIDERS: ATTEND Internal Medicine Cardiovascular Disease
DX: E78.2 Mixed hyperlipidemia (principal)
CPT/HCPCS: 36415; 80061; 84450; 84460

== ENCOUNTER → 2022-02-28 | Outpatient (CLI) | payer BC ==
--- NOTE | 2022-02-28 14:09 | CT ---
EXAMINATION TYPE: CT abdomen pelvis wo con DATE OF EXAM: 02/28/2022 COMPARISON: CT dated 10/24/2017 HISTORY: Renal colic CT DLP: 871 mGycm Automated exposure control for dose reduction was used. TECHNIQUE: Helical acquisition of images was performed from the lung bases through the pelvis. FINDINGS: LUNG BASES: No significant abnormality is appreciated. LIVER/GB: No significant abnormality is appreciated. PANCREAS: No significant abnormality is seen. SPLEEN: No significant abnormality is seen. ADRENALS: No significant abnormality is seen. KIDNEYS: No radiodense renal, ureteric or urinary bladder calculi. No hydroureter or hydronephrosis. No definite renal lesion by this nonenhanced CT scan. FREE AIR: No free air is visualized RETROPERITONEAL ADENOPATHY: None visualized REPRODUCTIVE ORGANS: Previous hysterectomy. No gross adnexal mass. URINARY BLADDER: Not completely distended PELVIC ADENOPATHY: None visualized. OSSEOUS STRUCTURES: Degenerative changes of the lumbar spine. T11 upper endplate depression, likely chronic, please correlate clinically. No aggressive bone lesion. BOWEL: Unremarkable stomach, duodenum and small bowel. Elongated redundant sigmoid colon. Fecal load ing of segments of the colon. OTHER: Scattered arterial atherosclerotic calcifications. No sizable ascites. IMPRESSION: No radiodense urinary calculi. No hydroureter or hydronephrosis. Questionable constipation. No defini te acute abnormality seen in the abdomen or the pelvis. Incidental findings as described above.
== END | disposition home or self-care (01) ==
LOC: RADCTMAIN 12:35
PROVIDERS: ATTEND Family Medicine
DX: N23 Unspecified renal colic (principal)
CPT/HCPCS: 74176

== ENCOUNTER 2022-04-05 08:32 | Emergency (ER) | payer BC, MEDICARE ==
[2022-04-05 08:39] VITALS: BP 148/76; PULSE 88; TEMP 97.7
[2022-04-05 08:58] VITALS: RESP 20
--- NOTE | 2022-04-05 09:15 | ED ---
Recheck HPI - General Chief Complaint: Recheck/Abnormal Lab/Rx Stated Complaint: Covid +, Breathing issues Time Seen by Provider: 04/05/22 08:38 Source: patient, RN notes reviewed Mode of arrival: ambulatory Limitations: no limitations - History of Present Illness Initial Comments: 67-year-old female whose was diagnosed with "winded 19 recently who states she started developing a cough 2 days ago. No chest pain no overt fevers chills or sweats she did a home over test and it was positive. She does have a PCR test pending but no results yet. No other complaints or modifying factors no exertional dyspnea at this time she does have a cough. - Related Data Home Medications Medication Instructions Recorded Confirmed Levothyroxine Sodium [Levoxyl] 100 mcg PO DAILY 10/24/17 11/17/17 Albuterol Inhaler [Ventolin Hfa 2 puff INHALATION RT-Q6H PRN 11/17/17 11/17/17 Inhaler] Albuterol Nebulized [Ventolin 2.5 mg INHALATION RT-TID PRN 11/17/17 11/17/17 Nebulized] hydroCHLOROthiazide [Hydrodiuril] 25 mg PO Q48H 11/17/17 11/17/17 Allergies Allergy/AdvReac Type Severity Reaction Status Date / Time Rhanhbg-LBH-AqI Reductase AdvReac Unknown Verified 04/05/22 08:40 Inhibitor [Bogaqcg-The-Itg Reductase Inhibitor] Review of Systems ROS Statement: Those systems with pertinent positive or pertinent negative responses have been documented in the HPI. ROS Other: All systems not noted in ROS Statement are negative. 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 History of Any Multi-Drug Resistant Organisms: None Reported Past Surgical History: Heart Catheterization, Hysterectomy Additional Past Surgical History / Comment(s): left lower lung lobectomy secondary to benign tumor, "leaky valve", pt unsure of which valve {she follows with for this} Past Anesthesia/Blood Transfusion Reactions: No Reported Reaction Past Psychological History: No Psychological Hx Reported Smoking Status: Never smoker Past Alcohol Use History: Rare Past Drug Use History: None Reported - Past Family History Mother Family Medical History: Myocardial Infarction (MD) Additional Family Medical History / Comment(s): MD at 93 Father Additional Family Medical History / Comment(s): from ruptured gastric ulcer Sister(s) Family Medical History: Myocardial Infarction (MD) Additional Family Medical History / Comment(s): of MD 60 General Exam - General Exam Comments Initial Comments: This is a well-developed well-nourished awake alert oriented 4 female Limitations: no limitations General appearance: alert, anxious Head exam: Present: atraumatic, normocephalic, normal inspection Eye exam: Present: normal appearance, PERRL, EOMI. Absent: scleral icterus, conjunctival injection, periorbital swelling ENT exam: Present: normal exam, mucous membranes moist Neck exam: Present: normal inspection. Absent: tenderness, meningismus, lymphadenopathy Respiratory exam: Present: normal lung sounds bilaterally. Absent: respiratory distress, wheezes, rales, rhonchi, stridor Cardiovascular Exam: Present: regular rate, normal rhythm, normal heart sounds. Absent: systolic murmur, diastolic murmur, rubs, gallop, clicks GI/Abdominal exam: Present: soft, normal bowel sounds. Absent: distended, tende rness, guarding, rebound, rigid Extremities exam: Present: normal inspection, full ROM, normal capillary refill. Absent: tenderness, pedal edema, joint swelling, calf tenderness Back exam: Present: normal inspection Neurological exam: Present: alert, oriented X3, CN II-XII intact Psychiatric exam: Present: normal affect, normal mood Skin exam: Present: warm, dry, intact, normal color. Absent: rash Course Vital Signs 04/05/22 04/05/22 08:34 08:44 Temperature 97.7 F Pulse Rate 88 Respiratory 18 20 Rate Blood Pressure 148/76 O2 Sat by Pulse 98 Oximetry - Reevaluation(s) Reevaluation #1: 04/05/22 09:49 I did discuss findings the patient she is positive for COVID-19 intubation her chest x-ray is negative for acute findings she will receive antibody infusion. Medical Decision Making - Medical Decision Making Patient is feeling improved at this time she did receive the Covid antibody. Patient will be discharged home she is to follow-up when necessary - Lab Data Lab Results 04/05/22 04/05/22 Range/Units 09:16 09:23 Coronavirus (PCR) Detected A (Not Detectd) Influenza Type A RNA Not Detected (Not Detectd) Influenza Type B (PCR) Not Detected (Not Detectd) - Radiology Data Radiology results: report reviewed (Imaging reviewed as well as report no acute findings), image reviewed Disposition Clinical Impression: COVID-19 Disposition: HOME SELF-CARE Condition: Good Instructions (If sedation given, give patient instructions): Coronavirus Disease 2019 (COVID-19), Droplet Precautions (ED), COVID-19 (Coronavirus Disease 2019) (ED), Face Coverings (Masks) and COVID-19 (ED), Safely Care for Someone Who Has COVID-19 (ED), How to Recover from COVID-19 at Home (ED), Social Distancing Guidelines for COVID-19 (ED) Additional Instructions: Vitamin C 1 g per day, vitamin D3 4000- 5000 international units per day, nhjt-pdv-vwhkwyj zinc daily Is patient prescribed a controlled substance at d/c from ED?: No Referrals: Svetlana Ireland MD [Primary Care Provider] - 1-2 days Decision Date: 04/05/22 Decision Time: 11:08
--- NOTE | 2022-04-05 09:29 | XR ---
EXAMINATION TYPE: XR chest 2V DATE OF EXAM: 04/05/2022 COMPARISON: 11/17/2017 TECHNIQUE: PA and lateral views submitted. HISTORY: Cough FINDINGS: The lungs are clear and there is no pneumothorax, pleural effusion, or focal pneumonia. Heart size normal. No overt failure. Arthropathy of the shoulders. IMPRESSION: 1. No acute process.
[2022-04-05] MEDS ORDERED: BEBTELOVIMAB (EUA) 175 MG/2 ML VIAL IV ONE (10:15)
== END 2022-04-05 11:29 | disposition home or self-care (01) ==
LOC: EC 08:32
DX: U07.1 COVID-19 (principal); I10 Essential (primary) hypertension; J45.909 Unspecified asthma, uncomplicated; E07.9 Disorder of thyroid, unspecified; Z79.899 Other long term (current) drug therapy; Z88.8 Allergy status to other drugs, medicaments and biological substances; Z79.890 Hormone replacement therapy
CPT/HCPCS: 87502; 87635; 71046; 99283; Q0222

== ENCOUNTER → 2023-11-18 | Outpatient (CLI) | payer BC ==
--- NOTE | 2023-11-19 22:21 | MM ---
Reason for Exam: Screening (asymptomatic). Last screening mammogram was performed 12 month(s) ago. Patient History: Menarche at age 14. First Full-Term at age 28. Hysterectomy at age 35. Postmenopausal. Risk Values: Rochelle 5 year model risk: 1.7%. NCI Lifetime model risk: 5.6%. Prior Study Comparison: 09/28/2020 Bilateral Screening Mammogram, [facility]. 11/14/2021 Bilateral Screening Mammogram, [facility]. 11/15/2022 Bilateral MG 3D screening mammo w/cad, [facility]. Tissue Density: There are scattered fibroglandular densities. Findings: Analyzed By CAD. There is no suspicious group of microcalcifications or new suspicious mass in either breast. Overall Assessment: Negative, BI-RAD 1 Management: Screening Mammogram of both breasts in 1 year. . Patient should continue monthly self-breast exams. A clinical breast exam by your physician is recommended on an annual basis. This exam should not preclude additional follow-up of suspicious palpable abnormalities. Note on Rochelle scores and lifetime risk: 1. A Rochelle score greater than 3% is considered moderate risk. If this is the case, consider specialist referral to assess eligibility for a risk reducing agent. 2. If overall lifetime risk for the development of breast cancer is 20% or higher, the patient may qualify for future screening with alternating mammogram and breast MRI. Electronically signed and approved by: Sara Perez M.D. Radiologist
== END | disposition home or self-care (01) ==
LOC: RADMAMWWP 09:58
PROVIDERS: ATTEND Family Medicine
DX: Z12.31 Encounter for screening mammogram for malignant neoplasm of breast (principal); Z78.0 Asymptomatic menopausal state
CPT/HCPCS: 77063; 77067

== ENCOUNTER → 2024-12-22 | Outpatient (CLI) | payer BC ==
[2024-12-22 16:00] LABS: % Iron Saturation 25.95 (12.00-45.00); Albumin 4.3 g/dL (3.8-4.9); Albumin/Globulin Ratio 1.79 Ratio (1.60-3.17); Bilirubin, Conjugated 0.2 mg/dL (0.20-0.40); Bilirubin,Unconjugated 0.3 mg/dL (0.20-1.00); Globulin 2.4 g/dL (1.6-3.3); Total Bilirubin 0.5 mg/dL (0.3-1.2); Total Protein 6.7 g/dL (6.2-8.2)
[2024-12-22 16:32] LABS: Hepatitis A Antibody IgM Nonreactive (Nonreactive); Hepatitis B Core IgM Nonreactive (Nonreactive); Hepatitis B Surface Antigen Nonreactive (Nonreactive); Hepatitis C IgG Antibody Nonreactive (Nonreactive)
[2024-12-22 16:45] LABS: Ceruloplasmin 28.4 mg/dL (20.0-60.0)
== END | disposition home or self-care (01) ==
LOC: LABWHC1 08:36
PROVIDERS: ATTEND Family Medicine
DX: R74.8 Abnormal levels of other serum enzymes (principal); R53.82 Chronic fatigue, unspecified
CPT/HCPCS: 36415; 80074; 80076; 82390; 82607; 83516; 83540; 83550

== ENCOUNTER → 2025-02-12 | Outpatient (CLI) | payer BC ==
--- NOTE | 2025-02-12 07:57 | US ---
EXAMINATION TYPE: US liver DATE OF EXAM: 02/12/2025 COMPARISON: CT abdomen and pelvis February 28, 2022 CLINICAL INDICATION: Female, 69 years old with history of R74.8 ABNORMAL LEVELS OF OTHER SERUM ENZY; elevated liver enzymes TECHNIQUE: Grayscale and color Doppler imaging of the right upper quadrant. FINDINGS: EXAM MEASUREMENTS: Liver Length: 11.5 cm Gallbladder Wall: .2 cm CBD: .2 cm, color Doppler imaging was utilized to isolate the common bile duct for measurement. Right Kidney: 10.5 x 3.0 x 4.1 cm BEHAVIORAL INTERVENTION SPECIALIST NOTES: Pancreas: Tail obscured by overlying bowel gas Liver: wnl Gallbladder: No stones seen Evidence for sonographic Stein's sign: No CBD: wnl Right Kidney: No hydronephrosis or masses seen IMPRESSION: Suboptimal study. No suspicious intrahepatic mass or biliary dilatation noted. [facility], , 02/12/2025 7:55 AM
--- NOTE | 2025-02-12 08:10 | MM ---
Reason for Exam: Screening (asymptomatic). Last mammogram was performed 1 year(s) and 3 month(s) ago. Patient History: Menarche at age 14. First Full-Term at age 28. Hysterectomy at age 35. Postmenopausal. Risk Values: Rochelle 5 year model risk: 1.7%. NCI Lifetime model risk: 5.4%. Prior Study Comparison: 11/14/2021 Bilateral Screening Mammogram, [facility]. 11/15/2022 Bilateral MG 3D screening mammo w/cad, [facility]. 11/18/2023 Bilateral MG 3D screening mammo w/cad, [facility]. Tissue Density: The breasts are heterogeneously dense, which may obscure small masses. Findings: Analyzed By CAD. Right breast: There is no suspicious group of microcalcifications or new suspicious mass. Left breast: There is no suspicious group of microcalcifications or new suspicious mass. Overall Assessment: Negative, BI-RAD 1 Management: Screening Mammogram of both breasts in [address] [facility] will attempt to contact patient to return for supplemental views and ultrasound if indicated. Patient should continue monthly self-breast exams. A clinical breast exam by your physician is recommended on an annual basis. This exam should not preclude additional follow-up of suspicious palpable abnormalities. Note on Rochelle scores and lifetime risk: 1. A Rochelle score greater than 3% is considered moderate risk. If this is the case, consider specialist referral to assess eligibility for a risk reducing agent. 2. If overall lifetime risk for the development of breast cancer is 20% or higher, the patient may qualify for future screening with alternating mammogram and breast MRI. [facility], , 02/12/2025 8:08 AM. Electronically signed and approved by: Tyrell Jefferson DO
--- NOTE | 2025-02-12 10:06 | BD ---
EXAMINATION TYPE: Axial Bone Density DATE OF EXAM: 02/12/2025 CLINICAL HISTORY: 69 years old Female. ICD-10 CODE: Z780 POSTMENO , Additional History: Height: 64.25 Weight: 145.8 FRAX RISK QUESTIONS: Alcohol (3 or more units per day): no Family History (Parent hip fracture): no Glucocorticoids (More than 3mos): no (Ex: prednisone, prednisolone, methylprednisolone, dexamethasone, and hydrocortisone). History of Fracture in Adulthood: yes Secondary Osteoporosis: 1. Type 1 Diabetes: no 2. Hyperthyroidism: no 3. Menopause before 45: yes 4. Malnutrition: no 5. Chronic liver disease: fatty liver Rheumatoid Arthritis: no Current Tobacco Use: no RISK FACTORS HISTORY OF: Hip Fracture (Right/Left): no Spine Fracture: no History of Wrist Fracture: RT Wrist When: age 50 Surgery to Spine/Hip(right/left)/Wrist (right/left): no MEDICATIONS: Thyroid Medications: Levothyroxine How Long: past 20 years Osteoporosis Medications: no EXAM MEASUREMENTS: Bone mineral densitometry was performed using the [employer] System. Bone mineral density as measured about the Lumbar spine is: ----- L1-L4(G/cm2): 0.948 T Score Values are as follows: ----- L1: -1.6 ----- L2: -2.0 ----- L3: -2.2 ----- L4: -2.0 ----- L1-L4: -1.9 Z Score Values are as follows: ----- L1: 0.0 ----- L2: -0.4 ----- L3: -0.6 ----- L4: -0.4 ----- L1-L4: -0.3 Baseline Study Bone mineral density about the R hip (g/cm2): 0.728 Bone mineral density about the L hip (g/cm2): 0.728 T Score values are as follows: -----R Neck: -2.2 -----L Neck: -2.0 -----R Total: -2.2 -----L Total: -2.2 Z Score values are as follows: -----R Neck: -0.6 -----L Neck: -0.3 -----R Total: -0.8 -----L Total: -0.8 Baseline Study FRAX%s: The graph provided illustrates a 20.9% chance for a major osteoporotic fx and a 4.6% chance f or the hips probability for fx in 10 years time. IMPRESSION: Osteopenia (T Score between -2.5 and -1). There is slightly increased risk of fracture and the patient may be considered for treatment. Re-Screen 2-5 years. NOTE: T-SCORE=SD OF THE YOUNG ADULT MEAN. [facility], , 02/12/2025 10:03 AM
== END | disposition home or self-care (01) ==
LOC: RADUSWWP 06:47
PROVIDERS: ATTEND Family Medicine
DX: Z12.31 Encounter for screening mammogram for malignant neoplasm of breast (principal); R74.8 Abnormal levels of other serum enzymes; R92.333 Mammographic heterogeneous density, bilateral breasts; M85.89 Other specified disorders of bone density and structure, multiple sites; Z78.0 Asymptomatic menopausal state
CPT/HCPCS: 76705; 77063; 77067; 77080